=== PATIENT | female | born 1975 | race Caucasian/White ===

== ENCOUNTER 2024-07-08 12:38 | Outpatient (CLI) | payer BC | END 2024-07-08 12:39 | disposition home or self-care (01) | LOC: CSHULT 12:38 | PROVIDERS: ATTEND Internal Medicine Hematology & Oncology | DX: Z01.810 Encounter for preprocedural cardiovascular examination (principal); C49.22 Malignant neoplasm of connective and soft tissue of left lower limb, including hip; C78.01 Secondary malignant neoplasm of right lung; I42.7 Cardiomyopathy due to drug and external agent | CPT/HCPCS: 93306 ==

== ENCOUNTER 2025-08-21 09:00 | Day surgery (SDC) | payer BC ==
[2025-08-20 12:11] VITALS: BMI 27.4
[~2025-08-21 09:00] MED LIST: Bupivacaine HCl 0.5%/Epinephrine 1:200,000/PF 30 ml Vial ONE; CEFAZOLIN 2 GM VIAL ONE; Lidocaine 1% PF 5 ML VIAL ONE; PROPOFOL 60 ML ONE
== END 2025-08-21 11:28 | disposition home or self-care (01) ==
LOC: CSHSDC 09:00
PROVIDERS: ATTEND Surgery
PROC: 0JH60WZ Insertion of Totally Implantable Vascular Access Device into Chest Subcutaneous Tissue and Fascia, Open Approach (ICD-10-PCS; principal; 2025-08-21)
DX: C79.89 Secondary malignant neoplasm of other specified sites (principal); C78.01 Secondary malignant neoplasm of right lung; C49.20 Malignant neoplasm of connective and soft tissue of unspecified lower limb, including hip; E03.9 Hypothyroidism, unspecified; F41.9 Anxiety disorder, unspecified; J45.909 Unspecified asthma, uncomplicated; Z98.51 Tubal ligation status; Z91.048 Other nonmedicinal substance allergy status; Z79.890 Hormone replacement therapy; Z79.51 Long term (current) use of inhaled steroids; Z79.899 Other long term (current) drug therapy
CPT/HCPCS: 71045; J1642; J2704

== ENCOUNTER 2025-09-02 12:26 | Outpatient (CLI) | payer BC | END 2025-09-02 12:27 | disposition home or self-care (01) | LOC: CSHULT 12:26 | PROVIDERS: ATTEND Internal Medicine Hematology & Oncology | DX: C49.8 Malignant neoplasm of overlapping sites of connective and soft tissue (principal); C78.01 Secondary malignant neoplasm of right lung; C49.22 Malignant neoplasm of connective and soft tissue of left lower limb, including hip; D70.8 Other neutropenia | CPT/HCPCS: 93306 ==